=== PATIENT | female | born 1995 | race Caucasian/White ===

== ENCOUNTER 2018-06-25 11:46 | Inpatient (IN) | payer BC ==
[~2018-06-25] VITALS: Ht 162.6 cm; Wt 104.3 kg
[2018-06-25] MEDS ORDERED: TERBUTALINE SULFATE 1 MG/ML VIAL SUBCUT ONE (12:15)
[2018-06-25] MEDS ORDERED: TERBUTALINE SULFATE 1 MG/ML VIAL ONE (12:20)
[2018-06-25 13:27] LABS: BILIRUBIN,URINE NEGATIVE (NEGATIVE); BLOOD, URINE NEGATIVE (NEGATIVE); CLARITY/URINE CLEAR (CLEAR); COLOR,URINE YELLOW (YELLOW); GLUCOSE,URINE NEGATIVE (NEGATIVE); KETONES,URINE NEGATIVE (NEGATIVE); LEUKOCYTE ESTERASE ,URINE NEGATIVE (NEGATIVE); NITRITE, URINE NEGATIVE (NEGATIVE); PH,URINE 6.5 (5.0-8.0); PROTEIN URINE NEGATIVE (NEGATIVE); UROBILINOGEN,URINE 0.2 (0.2-1.0)
[2018-06-25] MEDS: NIFEdipine 10 MG CAPSULE PO SCH ×2 (19:21→19:45)
[2018-06-25] MEDS ORDERED: NIFEdipine 10 MG CAPSULE PO ONE (19:25)
[2018-06-25] MEDS ORDERED: FIORCET PO PRN (21:30)
[2018-06-26] MEDS: NIFEdipine 10 MG CAPSULE PO SCH ×2 (00:18→04:02)
[2018-06-26] MEDS: ACETAMINOPHEN 500 MG TABLET PO PRN ×2 (00:19→04:01)
[2018-06-26] MEDS ORDERED: MORPHINE SULFATE 10 MG/ML VIAL IM ONE ×2 (08:30→14:15)
[2018-06-26] MEDS ORDERED: LR 1,000 ML IV SCH ×3 (14:13→23:32)
[2018-06-26] MEDS ORDERED: MORPHINE SULFATE 10 MG/ML VIAL ONE (14:25)
[2018-06-26] MEDS ORDERED: ONDANSETRON HCL 4 MG/2 ML VIAL IVP PRN ×3 (18:00→22:45)
[2018-06-26] MEDS ORDERED: TEMAZEPAM 15 MG CAPSULE PO PRN (21:00)
[2018-06-26] MEDS ORDERED: CEFAZOLIN 2 GM IVPB PREMIX 50 ML IV ONE ×2 (21:00→23:20)
[2018-06-26 21:30] LABS: EOSINOPHILS % (AUTO) 0.1 % (0.0-4.0); LYMPHOCYTES # (AUTO) 1.2 K/uL (1.0-5.5); MONOCYTES # (AUTO) 0.4 K/uL (0.0-1.0)
[2018-06-26 21:40] LABS: BASOPHILS % (AUTO) 0.1 % (0.0-2.0); LYMPHOCYTES % (AUTO) 10.2 % (20.5-51.5); MEAN CORPUSCULAR HEMOGLOBIN 29 pg (27-31); MEAN CORPUSCULAR HGB CONC 33 % (32-36); MEAN CORPUSCULAR VOLUME 88 fL (79.0-98.0); MONOCYTES % (AUTO) 3.8 % (1.7-9.3); NEUTROPHILS # (AUTO) 9.9 K/uL (1.8-7.7); NEUTROPHILS % (AUTO) 85.8 % (40.0-70.0); PLATELET COUNT (AUTO) 175 K/uL (130-430); RED BLOOD CELL COUNT(AUTO) 4.52 MIL/uL (4.2-6.2); RED CELL DISTRIBUTION WIDTH 12.6 % (9.0-15.0); WHITE BLOOD COUNT (AUTO) 11.5 K/uL (4.8-10.8)
[2018-06-26] MEDS ORDERED: CEFAZOLIN 1 GM IVPB PREMIX 50 ML IV ONE (22:28)
[2018-06-26] MEDS ORDERED: MORPHINE SULFATE 10MG/10ML PF AMP SP SCH (22:45)
[2018-06-26] MEDS ORDERED: KETOROLAC TROMETHAMINE 30 MG VIAL IVP PRN (22:45)
[2018-06-26] MEDS ORDERED: NALBUPHINE HCL 10 MG/ML AMP IVP PRN (22:45)
[2018-06-26] MEDS ORDERED: fentaNYL CITRATE/PF 100 MCG/2 ML AMP IVP PRN ×2 (22:45)
[2018-06-26] MEDS ORDERED: KETOROLAC TROMETHAMINE 60 MG/2 ML VIAL IM PRN (22:45)
[2018-06-26] MEDS ORDERED: NALOXONE HCL 0.4 MG/ML AMP (NARCAN) IVP PRN ×2 (22:45)
[2018-06-26] MEDS ORDERED: MORPHINE SULFATE 10MG/10ML PF AMP ONE (23:20)
[2018-06-26] MEDS ORDERED: LR 1,000 ML IV.SOLN IV ONE (23:20)
[2018-06-26] MEDS ORDERED: NS IRRIG SOLN 1000 ML IR ONE (23:20)
[2018-06-26] MEDS ORDERED: BUPIVACAINE /PF 0.75% 10 ML VIAL INJ ONE (23:20)
[2018-06-26] MEDS ORDERED: ONDANSETRON HCL 4 MG/2 ML VIAL ONE (23:20)
[2018-06-26] MEDS ORDERED: OXYTOCIN/0.9 % SODIUM CHLORIDE 1,000 ML IV ONE (23:32)
[2018-06-26] MEDS ORDERED: SIMETHICONE 80 MG TAB.CHEW PO PRN (23:45)
[2018-06-26] MEDS ORDERED: LANOLIN 7 GM OINT. TP PRN (23:45)
[2018-06-26] MEDS ORDERED: HYDROcodone/ACETAMIN 5-325 MG TAB (NORCO/ VICODIN) PO PRN (23:45)
[2018-06-26] MEDS ORDERED: DIPH-TET-PERTUS Vaccine 0.5 ML VIAL (ADACEL) I.M. PRN (23:45)
[2018-06-26] MEDS ORDERED: OXYCODONE/ACETAMINOPHEN 5-325 TABLET PO PRN ×2 (23:45)
[2018-06-26] MEDS ORDERED: MEASLES,MUMPS&RUBELLA VACC/PF 12500 UNIT/0.5 ML VIAL SUBQ PRN (23:45)
[2018-06-26] MEDS ORDERED: SENNOSIDES/DOCUSATE SODIUM 1 TAB TABLET(SENOKOT-S) PO PRN (23:45)
[2018-06-26] MEDS ORDERED: DOCUSATE SODIUM 100 MG CAPSULE PO PRN (23:45)
[2018-06-26] MEDS ORDERED: RHO(D) IMMUNE GLOBULIN/MALTOSE 1500 UNITS/1.3 ML (WINHRO) IM PRN (23:45)
[2018-06-26] MEDS ORDERED: BISACODYL 10 MG/SUPPOSITORY RC PRN (23:45)
[2018-06-27] MEDS ORDERED: DIPHENHYDRAMINE INJ 50 MG/ML VIAL ONE (00:02)
[2018-06-27] MEDS: CEFAZOLIN 1 GM IVPB PREMIX 50 ML IV SCH ×3 (04:12→16:00)
[2018-06-27] MEDS: DIPHENHYDRAMINE INJ 50 MG/ML VIAL IVP PRN ×4 (04:12→12:36)
[2018-06-27 06:52] LABS: BASOPHILS % (AUTO) 0.2 % (0.0-2.0); EOSINOPHILS % (AUTO) 0.2 % (0.0-4.0); HEMATOCRIT 33.4 % (36-48); LYMPHOCYTES # (AUTO) 1.2 K/uL (1.0-5.5); MEAN CORPUSCULAR HEMOGLOBIN 29 pg (27-31); MEAN CORPUSCULAR HGB CONC 33 % (32-36); MEAN CORPUSCULAR VOLUME 88 fL (79.0-98.0); MONOCYTES # (AUTO) 0.6 K/uL (0.0-1.0); MONOCYTES % (AUTO) 5.3 % (1.7-9.3); NEUTROPHILS # (AUTO) 8.9 K/uL (1.8-7.7); NEUTROPHILS % (AUTO) 83.3 % (40.0-70.0); PLATELET COUNT (AUTO) 135 K/uL (130-430); RED BLOOD CELL COUNT(AUTO) 3.81 MIL/uL (4.2-6.2); RED CELL DISTRIBUTION WIDTH 12.6 % (9.0-15.0); WHITE BLOOD COUNT (AUTO) 10.7 K/uL (4.8-10.8)
[2018-06-27 08:32] VITALS: BP_SYST 133
[2018-06-27] MEDS ORDERED: KETOROLAC TROMETHAMINE 60 MG/2 ML VIAL IM ONE (12:00)
[2018-06-28] MEDS ORDERED: IBUPROFEN 600 MG TABLET PO SCH (12:00)
== END 2018-06-27 20:20 | disposition home or self-care (01) | DRG 765 ==
LOC: OBSVTOIN 11:46 → SPU 11:46
PROVIDERS: ADMIT Specialist; ATTEND Specialist
PROC: 10D00Z1 Extraction of Products of Conception, Low, Open Approach (ICD-10-PCS; principal; 2018-06-27)
DX: O34.211 Maternal care for low transverse scar from previous cesarean delivery (principal); O41.03X0 Oligohydramnios, third trimester, not applicable or unspecified; O36.5930 Maternal care for other known or suspected poor fetal growth, third trimester, not applicable or unspecified; O69.81X0 Labor and delivery complicated by cord around neck, without compression, not applicable or unspecified; Z88.8 Allergy status to other drugs, medicaments and biological substances; Z3A.36 36 weeks gestation of pregnancy; Z37.0 Single live birth
CPT/HCPCS: 36415; 59899; 81003; 85025; 86886; 86900; 86901; 88305; 88307; 94760; J0690; J1200; J1885; J2270; J2274; J2405; J2590; J3105; J3490; J7120

== ENCOUNTER 2018-06-29 15:33 | Emergency (ER) | payer BC ==
[~2018-06-29] VITALS: Ht 162.6 cm; Wt 104.3 kg
[2018-06-29 15:40] VITALS: BP_SYST 120
[2018-06-29] MEDS ORDERED: KETOROLAC TROMETHAMINE 30 MG VIAL IVP ONE (16:00)
[2018-06-29] MEDS ORDERED: CEFAZOLIN 2 GM IVPB PREMIX 50 ML IV ONE (16:00)
[2018-06-29 16:28] LABS: BASOPHILS % (AUTO) 0.2 % (0.0-2.0); EOSINOPHILS # (AUTO) 0.1 K/uL (0.0-0.4); EOSINOPHILS % (AUTO) 1.2 % (0.0-4.0); HEMATOCRIT 33.8 % (36-48); HEMOGLOBIN 11.6 g/dL (12.0-16.0); LYMPHOCYTES # (AUTO) 1.1 K/uL (1.0-5.5); LYMPHOCYTES % (AUTO) 14.5 % (20.5-51.5); MEAN CORPUSCULAR HEMOGLOBIN 29 pg (27-31); MEAN CORPUSCULAR HGB CONC 34 % (32-36); MEAN CORPUSCULAR VOLUME 85 fL (79.0-98.0); MONOCYTES # (AUTO) 0.3 K/uL (0.0-1.0); MONOCYTES % (AUTO) 4.1 % (1.7-9.3); NEUTROPHILS # (AUTO) 6.2 K/uL (1.8-7.7); PLATELET COUNT (AUTO) 155 K/uL (130-430); RED BLOOD CELL COUNT(AUTO) 3.97 MIL/uL (4.2-6.2); RED CELL DISTRIBUTION WIDTH 12.6 % (9.0-15.0); WHITE BLOOD COUNT (AUTO) 7.7 K/uL (4.8-10.8)
[2018-06-29] MEDS ORDERED: KETOROLAC TROMETHAMINE 30 MG VIAL ONE (16:34)
[2018-06-29 16:36] LABS: CALCIUM 8.6 mg/dL (8.4-11.0); CREATININE 0.57 mg/dL (0.55-1.30); POTASSIUM 3.7 mmol/L (3.5-5.1)
[2018-06-29 16:47] LABS: ALBUMIN 2.4 g/dL (3.4-4.8); TOTAL BILIRUBIN 0.2 mg/dL (0.0-1.0)
[2018-06-29 16:55] LABS: BILIRUBIN,URINE NEGATIVE (NEGATIVE); BLOOD, URINE 3+ (NEGATIVE); CLARITY/URINE CLEAR (CLEAR); COLOR,URINE YELLOW (YELLOW); GLUCOSE,URINE NEGATIVE (NEGATIVE); KETONES,URINE NEGATIVE (NEGATIVE); LEUKOCYTE ESTERASE ,URINE 1+ (NEGATIVE); NITRITE, URINE NEGATIVE (NEGATIVE); PROTEIN URINE TRACE (NEGATIVE); UROBILINOGEN,URINE 0.2 (0.2-1.0)
[2018-06-29 17:03] LABS: BACTERIA,URINE FEW /HPF (None Seen); MUCUS,URINE None Seen /LPF (None Seen)
[2018-06-29 17:12] VITALS: BP_SYST 120
== END 2018-06-29 17:10 | disposition home or self-care (01) ==
LOC: SED 15:33
DX: T81.89XA Other complications of procedures, not elsewhere classified, initial encounter (principal); L03.311 Cellulitis of abdominal wall; J45.909 Unspecified asthma, uncomplicated; Z88.1 Allergy status to other antibiotic agents; Z88.8 Allergy status to other drugs, medicaments and biological substances; Y92.9 Unspecified place or not applicable
CPT/HCPCS: 36415; 80053; 81000; 85025; 87040; 87086; 96365; 96375; 99284; J0690; J1885

== ENCOUNTER 2020-03-01 21:25 | Emergency (ER) | payer BC, MEDICAID ==
[~2020-03-01] VITALS: Ht 162.6 cm; Wt 90.3 kg
[2020-03-01 21:25] VITALS: BP_SYST 140
[2020-03-01] MEDS ORDERED: NACL 0.9% 1,000 ML IV ONE (21:39)
[2020-03-01] MEDS ORDERED: ONDANSETRON HCL 4 MG/2 ML VIAL IVP ONE (21:45)
[2020-03-01] MEDS ORDERED: MORPHINE 4 MG/ML INJ. SYRINGE IVP ONE (21:45)
[2020-03-01 22:27] LABS: BASOPHILS % (AUTO) 0.7 % (0.0-2.0); EOSINOPHILS # (AUTO) 0.2 K/uL (0.0-0.4); EOSINOPHILS % (AUTO) 3.6 % (0.0-4.0); HEMOGLOBIN 13.6 g/dL (12.0-16.0); LYMPHOCYTES # (AUTO) 1.4 K/uL (1.0-5.5); LYMPHOCYTES % (AUTO) 29.2 % (20.5-51.5); MEAN CORPUSCULAR HEMOGLOBIN 31 pg (27-31); MEAN CORPUSCULAR HGB CONC 34 % (32-36); MEAN CORPUSCULAR VOLUME 92 fL (79.0-98.0); MONOCYTES # (AUTO) 0.4 K/uL (0.0-1.0); MONOCYTES % (AUTO) 8.1 % (1.7-9.3); NEUTROPHILS # (AUTO) 2.7 K/uL (1.8-7.7); NEUTROPHILS % (AUTO) 58.4 % (40.0-70.0); PLATELET COUNT (AUTO) 166 K/uL (130-430); RED BLOOD CELL COUNT(AUTO) 4.35 MIL/uL (4.2-6.2); RED CELL DISTRIBUTION WIDTH 13.2 % (9.0-15.0); WHITE BLOOD COUNT (AUTO) 4.7 K/uL (4.8-10.8)
[2020-03-01 22:33] LABS: BILIRUBIN,URINE 1+ (NEGATIVE); BLOOD, URINE 3+ (NEGATIVE); CLARITY/URINE CLOUDY (CLEAR); COLOR,URINE RED (YELLOW); GLUCOSE,URINE NEGATIVE (NEGATIVE); KETONES,URINE TRACE (NEGATIVE); LEUKOCYTE ESTERASE ,URINE TRACE (NEGATIVE); NITRITE, URINE POSITIVE (NEGATIVE); PH,URINE 5.5 (5.0-8.0); PROTEIN URINE 2+ (NEGATIVE)
[2020-03-01 22:39] LABS: BACTERIA,URINE MODERATE /HPF (None Seen); RBC,URINE >100 /HPF (0-3)
[2020-03-01 22:39] LABS: CALCIUM 8.7 mg/dL (8.4-11.0); CREATININE 0.96 mg/dL (0.55-1.30)
[2020-03-01 22:43] LABS: PROTHROMBIN TIME 9.8 SECS (9.5-12.5)
[2020-03-01 22:52] LABS: ALBUMIN 4.1 g/dL (3.4-4.8); TOTAL BILIRUBIN 0.4 mg/dL (0.0-1.0)
[2020-03-01 23:06] VITALS: BP_SYST 140
== END 2020-03-01 23:06 | disposition home or self-care (01) ==
LOC: SED 21:25
DX: N93.8 Other specified abnormal uterine and vaginal bleeding (principal); N39.0 Urinary tract infection, site not specified; N92.1 Excessive and frequent menstruation with irregular cycle; J45.909 Unspecified asthma, uncomplicated; Z88.1 Allergy status to other antibiotic agents; Z88.8 Allergy status to other drugs, medicaments and biological substances; Z91.018 Allergy to other foods
CPT/HCPCS: 36415; 76830; 76857; 80053; 81000; 82150; 83605; 83690; 84702; 85025; 85610; 85730; 86900; 86901; 87040; 87086; 99284; J7030